=== PATIENT | male | born 1955 | race Caucasian/White ===

== ENCOUNTER 2019-06-11 07:50 | Day surgery (SDC) | payer OTHER ==
--- NOTE | 2019-06-04 09:06 | EKG REPORT ---
SEVERITY:- BORDERLINE ECG - SINUS RHYTHM PROBABLE LEFT ATRIAL ABNORMALITY BORDERLINE LEFT AXIS DEVIATION : Confirmed by: Jocelyne Wren 04-Jun-2019 09:05:59
[2019-06-04 09:37] LABS: HEMATOCRIT 49.4 % (37.9-51.0); HEMOGLOBIN 16.4 g/dL (13.5-17.0); MEAN CORPUSCULAR HEMOGLOBIN 30.5 pg (27.0-33.4); MEAN CORPUSCULAR HGB CONC 33.3 g/dL (32.0-36.0); MEAN CORPUSCULAR VOLUME 92 fl (80-97); PLATELET COUNT 211 10^3/uL (150-450); RED BLOOD COUNT 5.39 10^6/uL (4.35-5.55); RED CELL DISTRIBUTION WIDTH 13.3 % (11.5-14.0); WHITE BLOOD COUNT 6.1 10^3/uL (4.0-10.5)
[2019-06-04 09:58] LABS: ANION GAP 9 (5-19); BLOOD UREA NITROGEN 23 mg/dL (7-20); CALCIUM 9.9 mg/dL (8.4-10.2); CARBON DIOXIDE 30 mmol/L (22-30); CHLORIDE 101 mmol/L (98-107); GLUCOSE 78 mg/dL (75-110); POTASSIUM 4.6 mmol/L (3.6-5.0)
[~2019-06-11 07:50] MED LIST: CEFAZOLIN 1 GM/D5W RTU 1 GM/50 ML RTUPB IV PRN
[2019-06-11] MEDS ORDERED: BUPIVACAINE HCL 0.5%-EPI 1:200000 INJ/PF 30 ML VIAL ONE (08:10)
[2019-06-11] MEDS ORDERED: CEFAZOLIN 1 GM/D5W RTU 1 GM/50 ML RTUPB IV ONE (08:31)
[2019-06-11] MEDS ORDERED: MIDAZOLAM 2 MG/2 ML INJ ONE (09:09)
[2019-06-11] MEDS ORDERED: HYDROMORPHONE HCL INJ/PF 2 MG/ML AMPULE ONE (09:09)
[2019-06-11] MEDS ORDERED: FENTANYL CITRATE INJ/PF 100 MCG/2 ML AMPUL ONE (09:10)
[2019-06-11] MEDS ORDERED: PROPOFOL INJ 200 MG/20 ML VIAL IV ONE (09:10)
[2019-06-11] MEDS ORDERED: PROMETHAZINE HCL INJ 25 MG/1 ML VIAL IV PRN (09:49)
[2019-06-11] MEDS ORDERED: DIPHENHYDRAMINE HCL 50 MG/ML VIAL IV PRN (09:49)
[2019-06-11] MEDS ORDERED: MORPHINE SULFATE 10 MG/ML INJ IV PRN ×2 (09:49→19:52)
[2019-06-11] MEDS ORDERED: OXYCODONE-ACETAMINOPHEN 5-325 MG TABLET PO PRN ×3 (09:49→11:27)
[2019-06-11] MEDS ORDERED: ONDANSETRON HCL INJ/PF 4 MG/2 ML SDV IV PRN (09:49)
[2019-06-11] MEDS ORDERED: FENTANYL CITRATE INJ/PF 100 MCG/2 ML AMPUL IV PRN ×3 (09:49)
[2019-06-11] MEDS ORDERED: MEPERIDINE HCL/PF INJ 25 MG/1 ML DISP.SYRIN IV PRN (09:49)
--- NOTE | 2019-06-11 11:16 | Discharge Summary ---
Discharge Summary (SDC) - Discharge Final Diagnosis: right inguinal hernia Date of Surgery: 06/11/19 Condition: Good Referrals: DULCE MARIA SOTO PA-C [Primary Care Provider] - Discharge Diet: As Tolerated Discharge Activity: Activity As Tolerated, No Lifting Over 10 Pounds Report the Following to Your Physician Immediately: Shortness of Breath, Vomiting, Increase in Pain, Unusual Bleeding - pt needs a f/u with me in 10- 14days
[2019-06-11] MEDS ORDERED: EPHEDRINE SULFATE INJ 50 MG/1 ML AMPULE ONE (11:20)
--- NOTE | 2019-06-11 11:27 | Operative Report ---
Nonrecallable Operative Report DATE OF SURGERY: 06/11/19 PREOPERATIVE DIAGNOSIS: right inguinal hernia POSTOPERATIVE DIAGNOSIS: right inguinal hernia OPERATION: laparoscopic repair of right inguinal perriria SURGEON: CHAKA DEL REAL 1ST MANAGER CONTENT: RADHA MARQUEZ TISSUE REMOVED OR ALTERED: none COMPLICATIONS: none INTRAOPERATIVE FINDINGS: direct and indirect rt inguinal hernia PROCEDURE: Patient was brought into the operating room awake alert stable condition placed in the operating table in supine position induced under general anesthesia intubated After appropriate timeout site verification the abdomen was prepped and draped in usual sterile fashion. A curvilinear infraumbilical incision was made with a 15 blade dissection was carried down through subtenons tissue with Bovie cautery until we reached the anterior rectus fascia which was opened transversely the muscle was retracted laterally the posterior sheath came into view. The hernia Spacemaker balloon was placed on top of the posterior sheath and manipulated down to the pubic symphysis when it was insufflated under direct visualization. This created a space for us to perform the repair with. First turned attention to the right side I mobilized the peritoneum away from the lateral abdominal wall identifying the transversalis fascia and tr ansversalis muscle and muscle and continued our dissection from the lateral wall inferiorly to we reached the inguinal ring and the cord structures. The patient had a fairly large indirect inguinal hernia and we mobilized the hernia sac out of the internal ring and posteriorized it. Once we dissected the sac away from the cord structures we noted that the patient had a direct inguinal hernia in hasselbachs angle. This was covered with a separate piece of mesh. We tacked both pieces of mesh to the Rakesh's ligament posteriorly and the rectus muscle anteriorly and laterally to the transversalis muscle being careful not to injure the lateral femoral cutaneous nerve. Once the defects were covered we identified the left side and mobilized the peritoneum away from the transversalis muscle laterally including noted that there was no evidence of a left-sided inguinal hernia. Therefore we terminated the procedure at this point we reduce the pneumoperitoneum we remove the ports and closed the fascial defect with 0 Vicryl. Skin was closed with intracuticular 4-0 Biosyn Steri-Strips completed the procedure. Patient was awakened in the operating extubated transferred recovery in stable condition. Radha CESPEDES was present for the entire procedure for help with wound retraction wound closure.
[2019-06-11] MEDS: FENTANYL CITRATE INJ/PF 100 MCG/2 ML AMPUL ONE ×2 (11:30→11:35)
[2019-06-11] MEDS ORDERED: KETOROLAC TROMETHAMINE INJ/PF 30 MG/1 ML SDV ONE (11:44)
[2019-06-11] MEDS ORDERED: ACETAMINOPHEN 1,000 MG/100 ML RTUPB IV ONE (11:44)
[2019-06-11] MEDS: MORPHINE SULFATE 10 MG/ML INJ ONE ×4 (11:45→12:00)
[2019-06-11] MEDS ORDERED: DEXAMETHASONE SOD PHOSPHATE INJ 4 MG/1 ML VIAL ONE (11:57)
[2019-06-11] MEDS ORDERED: ONDANSETRON HCL INJ/PF 4 MG/2 ML SDV ONE (11:57)
[2019-06-11] MEDS ORDERED: LIDOCAINE 2% INJ-PF (20 MG/ML) 2 ML AMPUL ONE (11:57)
[2019-06-11] MEDS ORDERED: NEOSTIGMINE METHYLSULFATE 10 MG/10 ML VIAL ONE (11:57)
[2019-06-11] MEDS ORDERED: ROCURONIUM BROMIDE INJ 50 MG/5 ML VIAL IV ONE (11:57)
[2019-06-11] MEDS ORDERED: GLYCOPYRROLATE 1 MG/5 ML VIAL ONE (11:57)
[2019-06-11] MEDS ORDERED: OXYCODONE-ACETAMINOPHEN 5-325 MG TABLET ONE (12:59)
[2019-06-11] MEDS ORDERED: LIDOCAINE 2% URO-JET 5 ML KIT ONE (16:59)
--- NOTE | 2019-06-11 19:04 | Progress Note ---
Provider Note Provider Note: It is status post laparoscopic right inguinal hernia this morning. Later this afternoon prior to discharge patient could not void. Patient has a history of previous TURP and some previous difficulty with catheter placement. After multiple attempts at placing a urinary catheter he utilizing filiform and followers as well as coud catheters we eventually were able to place a 12 Cypriot Silverio catheter. I obtained a cystogram at bedside and confirmed the catheter was in the bladder without evidence of any extravasation. I spoke with Dr. Garcia a urologist in [place] who suggested that we leave the catheter in place upon discharge and he will follow-up with urology prior to removing his urinary catheter. The catheter is only a 12 Cypriot catheter in and because of some bloody discharge at this point and concerned about it clotting with blood clots I will admit the patient overnight for a for catheter irrigations and observation The morning if the catheter output clears up discharge him home tomorrow and he will follow-up with urologist [facility].
--- NOTE | 2019-06-11 19:04 | RADIOLOGY REPORT (SQ) ---
EXAM DESCRIPTION: KUB/ABDOMEN (SINGLE VIEW) COMPLETED DATE/TIME: 06/11/2019 5:58 pm REASON FOR STUDY: post op K40.90 UNIL INGUINAL HERNIA, W/O OBST OR GANGR, NOT SPCF COMPARISON: None. NUMBER OF VIEWS: One view. TECHNIQUE: Supine radiographic image of the abdomen acquired. LIMITATIONS: None. FINDINGS: BOWEL GAS PATTERN: Nonobstructive gas pattern. Moderate amount of stool. CALCIFICATIONS: No suspicious calcifications. SOFT TISSUES: Cannot exclude a small amount of free air. HARDWARE: None in the abdomen. BONES: No acute fracture. No worrisome bone lesions. OTHER: No other significant finding. IMPRESSION: Cannot exclude a small amount of free air in the abdomen. Consider CT for further evalu ation. TECHNICAL DOCUMENTATION: JOB ID: [id number] [employer]- All Rights Reserved Reading location - IP/workstation name: [email or web address]
--- NOTE | 2019-06-11 19:35 | RADIOLOGY REPORT (SQ) ---
EXAM DESCRIPTION: KUB/ABDOMEN (SINGLE VIEW) COMPLETED DATE/TIME: 06/11/2019 6:40 pm REASON FOR STUDY: POST OP K40.90 UNIL INGUINAL HERNIA, W/O OBST OR GANGR, NOT SPCF COMPARISON: 06/11/2019 NUMBER OF VIEWS: One view. TECHNIQUE: Supine radiographic image of the abdomen acquired. LIMITATIONS: None. FINDINGS: BOWEL GAS PATTERN: Nonobstructive bowel gas pattern. Moderate stool throughout the colon. CALCIFICATIONS: No suspicious calcifications. SOFT TISSUES: Findings suggestive of free intra-abdominal gas. HARDWARE: Silverio catheter within bladder with contrast within the bladder lumen. Irregular bladder wa ll with bladder diverticula. BONES: No acute fracture. No worrisome bone lesions. OTHER: No other significant finding. IMPRESSION: 1. Findings suggestive of free intra-abdominal gas. 2. Partially distended urinary bladder with intraluminal contrast. Bladder diverticula with irregul ar bladder wall. No extravasation. TECHNICAL DOCUMENTATION: JOB ID: [id number] [employer]- All Rights Reserved Reading location - IP/workstation name: [email or web address]
[2019-06-11] MEDS ORDERED: POTASSI CL 20 MEQ/D5-1/2NS 1L 1000 ML IV PRN (19:51)
[2019-06-11] MEDS: CEFAZOLIN SODIUM 2 GM in DEXTROSE 5%-WATER 100 ML IV SCH (23:22)
[2019-06-12] MEDS ORDERED: LEVOTHYROXINE SODIUM 0.1 MG TABLET PO SCH (06:00)
[2019-06-12] MEDS: CEFAZOLIN SODIUM 2 GM in DEXTROSE 5%-WATER 100 ML IV SCH (06:05)
[2019-06-12 06:18] LABS: HEMATOCRIT 43.8 % (37.9-51.0); HEMOGLOBIN 14.6 g/dL (13.5-17.0); MEAN CORPUSCULAR HEMOGLOBIN 30.6 pg (27.0-33.4); MEAN CORPUSCULAR HGB CONC 33.5 g/dL (32.0-36.0); MEAN CORPUSCULAR VOLUME 92 fl (80-97); PLATELET COUNT 190 10^3/uL (150-450); RED BLOOD COUNT 4.78 10^6/uL (4.35-5.55); RED CELL DISTRIBUTION WIDTH 13.5 % (11.5-14.0); WHITE BLOOD COUNT 13.2 10^3/uL (4.0-10.5)
[2019-06-12 06:29] LABS: ANION GAP 8 (5-19); BLOOD UREA NITROGEN 30 mg/dL (7-20); CALCIUM 9.2 mg/dL (8.4-10.2); CARBON DIOXIDE 27 mmol/L (22-30); CHLORIDE 97 mmol/L (98-107); GLUCOSE 125 mg/dL (75-110)
--- NOTE | 2019-06-12 08:29 | PDOC DISCHARGE SUMMARY ---
General - Admit/Disc Date/PCP Admission Date/Primary Care Provider: DULCE MARIA SOTO PA-C Discharge Date: 06/12/19 - Discharge Diagnosis Final Diagnosis: right inguinal hernia and uretheral stricture - Assessment Summary: This patient is a 63-year-old male who underwent elective laparoscopic right inguinal hernia yesterday on 02/09/2019. He had difficulty voiding postoperatively in the recovery room and a Silverio catheter initially could not be placed. After multiple attempts were finally able to place a Silverio catheter using filiform and dilators. Because of the late hour and the need to monitor the patient for a urine output he was admitted overnight. This morning the patient is doing well he has clear urine coming out of his Silverio catheter his laboratories have been checked and his white count is slightly elevated at 13 with creatinine is within normal limits. He has had good urine output overnight. Currently he is pain-free and tolerating a regular diet. He will be discharged home today with a leg bag in place with a follow-up appointment be made with urology as an outpatient. He also will have an appointment be made with me for postop care regarding his inguinal hernia repair and will be next week. Discharge medications as tramadol 50 mg p.o. every 6 as needed pain. - Additional Information Resuscitation Status: Full Code Discharge Diet: As Tolerated, Regular Discharge Activity: Activity As Tolerated, No Lifting Over 10 Pounds - Patient will need an appointment with me 7 to 10 days after discharge he is to be discharged home with a leg bag in place a follow-up appointment should be made with Dr. Velazquez from urology [place]., No Lifting/Push/Pulling Referrals: CHAKA DEL REAL MD [ACTIVE STAFF] - 06/17/19 1:45 pm (Follow up with Dr Del Real 06/17/19 @ 0888) Home Medications: Levothyroxine Sodium [Synthroid 0.088 mg Tablet] 100 mcg PO DAILY 10/27/13 Lisinopril 1 tab PO DAILY 10/27/13 History of Present Illiness History of Present Illness: GARRICK STEWART is a 63 year old male Physical Exam Vital Signs: Temp Pulse Resp BP Pulse Ox 98.0 F 79 16 138/72 H 94 06/11/19 23:35 06/11/19 23:35 06/11/19 23:35 06/11/19 23:35 06/11/19 23:35 Intake & Output 06/11/19 06/12/19 06/13/19 06:59 06:59 06:59 Intake Total 3855 Output Total 1705 Balance 2150 Weight 69.9 kg Results Laboratory Results: WBC 13.2 10^3/uL (4.0-10.5) H 06/12/19 05:52 RBC 4.78 10^6/uL (4.35-5.55) 06/12/19 05:52 Hgb 14.6 g/dL (13.5-17.0) 06/12/19 05:52 Hct 43.8 % (37.9-51.0) 06/12/19 05:52 MCV 92 fl (80-97) 06/12/19 05:52 MCH 30.6 pg (27.0-33.4) 06/12/19 05:52 MCHC 33.5 g/dL (32.0-36.0) 06/12/19 05:52 RDW 13.5 % (11.5-14.0) 06/12/19 05:52 Plt Count 190 10^3/uL (150-450) 06/12/19 05:52 Sodium 132.2 mmol/L (137-145) L 06/12/19 05:52 Potassium 4.0 mmol/L (3.6-5.0) 06/12/19 05:52 Chloride 97 mmol/L (98-107) L 06/12/19 05:52 Carbon Dioxide 27 mmol/L (22-30) 06/12/19 05:52 Anion Gap 8 (5-19) 06/12/19 05:52 BUN 30 mg/dL (7-20) H 06/12/19 05:52 Creatinine 1.57 mg/dL (0.52-1.25) H 06/12/19 05:52 Est GFR ( Amer) 54 (>60) L 06/12/19 05:52 Est GFR (MDRD) Non-Af 45 (>60) L 06/12/19 05:52 Glucose 125 mg/dL (75-110) H 06/12/19 05:52 POC Glucose 216 mg/dL (70-110) H 06/11/19 15:35 Calcium 9.2 mg/dL (8.4-10.2) 06/12/19 05:52 Impressions: KUB X-Ray 06/11/19 00:00 IMPRESSION: Cannot exclude a small amount of free air in the abdomen. Consider CT for further evaluation. KUB X-Ray 06/11/19 00:00 IMPRESSION: 1. Findings suggestive of free intra-abdominal gas. 2. Partially distended urinary bladder with intraluminal contrast. Bladder diverticula with irregular bladder wall. No extravasation.
[2019-06-12 09:58] VITALS: BP 138/72
[2019-06-12] MEDS ORDERED: LISINOPRIL 5 MG TABLET PO SCH (10:00)
== END 2019-06-12 11:06 | disposition home or self-care (01) ==
LOC: OROUT 07:50 → 5 19:27 → OROUT 06-12 11:06
PROVIDERS: ATTEND Surgery
DX: K40.90 Unilateral inguinal hernia, without obstruction or gangrene, not specified as recurrent (principal); N40.0 Benign prostatic hyperplasia without lower urinary tract symptoms; N18.9 Chronic kidney disease, unspecified; E03.9 Hypothyroidism, unspecified; I12.9 Hypertensive chronic kidney disease with stage 1 through stage 4 chronic kidney disease, or unspecified chronic kidney disease; E66.9 Obesity, unspecified; Z79.899 Other long term (current) drug therapy
CPT/HCPCS: 93005; 36415 ×2; 82962; 85027 ×2; 80048 ×2; 74018; 93010; 00840; 49650; C1758 ×2; C1781; J2250; J3490 ×6; J0690 ×3; J1100; J3010; J1885; J2270; J2710; J2405; J7060 ×2; J2704; J0131; 840; J1170